=== PATIENT | male | born 1980 | race Caucasian/White ===

== ENCOUNTER 2021-05-01 03:13 | Emergency (ER) | payer SELFPAY ==
[~2021-05-01] VITALS: Ht 185.4 cm; Wt 136.0 kg
--- NOTE | 2021-05-01 03:53 | PHYS DOC ---
Past Medical History Additional Past Medical Histor: 5 STENTS LRV, methamphetamine use Past Surgical History: Tonsillectomy, Other Additional Past Surgical Histo: 5 HEART STENTS Smoking Status: Current Every Day Smoker Alcohol Use: Occasionally General Adult EDM: Chief Complaint: CHEST PAIN-CARDIAC NATURE HPI: HPI: Patient is a 40 year old male with past medical history of CAD s/p stents x5, polysubstance abuse including meth who presents with chest pain. Used meth yesterday evening. At approximately 2:30 AM began having chest pain while moving boxes. Chest pain lasts approximately 30 minutes. Took a nitroglycerin, and within a few minutes his chest pain had resolved. Chest pain was described as pressure. Radiates to the jaw. Feels similar to his previous heart pain. No nausea/vomiting, but was diaphoretic. Is now chest pain-free. Review of Systems: Review of Systems: Constitutional: Denies fever or chills. [] Eyes: Denies change in visual acuity. [] HENT: Denies nasal congestion or sore throat. [] Respiratory: Denies cough or shortness of breath. [] Cardiovascular: + Chest pain chest pain. No edema. [] GI: Denies abdominal pain, nausea, vomiting, bloody stools or diarrhea. [] : Denies dysuria. [] Musculoskeletal: Denies back pain or joint pain. [] Integument: Denies rash. [] Neurologic: Denies headache, focal weakness or sensory changes. [] Endocrine: Denies polyuria or polydipsia. [] Lymphatic: Denies swollen glands. [] Psychiatric: Denies depression or anxiety. [] Heart Score: C/O Chest Pain: Yes HEART Score for Chest Pain: HEART Score for Chest Pain Response (Comments) Value History Highly Suspicious 2 ECG Normal 0 Age < 45 0 Risk Factors >3 Risk Factors or Hx CAD 2 Total 4 Risk Factors: Risk Factors: DM, Current or recent (<one month) smoker, HTN, HLP, family history of CAD, obesity. Risk Scores: Score 0 - 3: 2.5% MACE over next 6 weeks - Discharge Home Score 4 - 6: 20.3% MACE over next 6 weeks - Admit for Clinical Observation Score 7 - 10: 72.7% MACE over next 6 weeks - Early Invasive Strategies Family History: Family History: No pertinent family history Allergies: Allergies: Allergies Coded Allergies Type Severity Reaction Last Updated Verified Penicillins Allergy Intermediate 05/01/21 Yes Sulfa (Sulfonamide Antibiotics) Allergy Intermediate 05/01/21 Yes Physical Exam: PE: Constitutional: Well developed, well nourished, no acute distress, non-toxic appearance. [] HENT: Normocephalic, atraumatic, bilateral external ears normal, oropharynx moist, no oral exudates, nose normal. [] Eyes: PERRLA, EOMI, conjunctiva normal, no discharge. [] Neck: Normal range of motion, no tenderness, supple, no stridor. [] Cardiovascular:Heart rate regular rhythm, no murmur [] Lungs & Thorax: Bilateral breath sounds clear to auscultation [] Abdomen: Bowel sounds normal, soft, no tenderness, no masses, no pulsatile masses. [] Skin: Warm, dry, no erythema, no rash. [] Back: No tenderness, no CVA tenderness. [] Extremities: No tenderness, no cyanosis, no clubbing, ROM intact, no edema. [] Neurologic: Alert and oriented X 3, normal motor function, normal sensory function, no focal deficits noted. [] Psychologic: Affect normal, judgement normal, mood normal. [] Current Patient Data: Vital Signs: Vital Signs Date Time Temp Pulse Resp B/P (MAP) Pulse Ox O2 Delivery O2 Flow Rate FiO2 05/01/21 03:20 98.6 97 22 129/81 98 Room Air 98.6 EKG: EKG: Sinus rhythm. Rate 99. Normal intervals. QTc 442. Normal axis. No acute ischemic changes identified. [] Radiology/Procedures: Radiology/Procedures: CXR Impression: [facility] [address] [place] [address] IMAGING REPORT Signed PATIENT: ALYSE GATES ACCOUNT: [id number] : 1980 LOCATION: ER AGE: 40 SEX: M EXAM STATUS: PRE ER ORD. PHYSICIAN: BHUMI HUTCHINSON MD REASON: CHEST PAIN, METH USE PROCEDURE: PORTABLE CHEST 1V EXAMINATION: Chest radiograph. VIEWS: Single view COMPARISON: None INDICATION:40 years, Male, chest pain. FINDINGS: Normal cardiomediastinal silhouette. No focal consolidation. No pleural effusion or pneumothorax. No acute osseous process. IMPRESSION: No acute cardiopulmonary process. Electronically signed by: Lele Bowser MD (05/01/2021 4:09 AM) [facility] DICTATED and SIGNED BY: LELE BOWSER MD DATE: 05/01/21 [id number] 0 Course & Med Decision Making: Course & Med Decision Making Pertinent Labs and Imaging studies reviewed. (See chart for details) Patient is a 40-year-old male with past medical history of coronary artery disea se s/p stents x5 and meth abuse who presents with chest pain. Chest pain similar to previous cardiac pain and occurred after methamphetamine use. Relieved with nitroglycerin. On arrival is afebrile, hemodynamically stable. EKG without acute ischemic changes. Given his substance use and history this is an extremely high risk situation. HEART score is 4 prior to first troponin. We'll check serial troponins. Feel he will need admission for chest pain/ACS evaluation. He is not have any infectious symptoms to suggest pneumonia. No pleuritic pain to suggest PE. No trauma to suggest PTX, but will evaluate with CXR. 0352 Patient was accepted for admission after his first troponin was negative. Patient was discovered to have eloped by nursing staff. They found that his IV was taken out. [id number] Dahlia Disclaimer: Dahlia Disclaimer: This electronic medical record was generated, in whole or in part, using a voice recognition dictation system. Departure Departure Impression: Primary Impression: Chest pain Disposition: LEFT AWOL/ELOPED Admitting Physician: BON Jane) Condition: STABLE BHUMI HUTCHINSON MD May 01, 2021 03:53
--- NOTE | 2021-05-01 04:06 | EKG ---
[facility] [address] [place] [address] Test Date: 2021-05-01 Test Time: 03:23:58 Pat Name: ALYSE GATES Department: Room: Gender: M Mail Machine Operator: : 1980 Requested By: BHUMI HUTCHINSON Order Number: [id number] Reading MD: Measurements Intervals [place] Rate: 99 P: 51 VA: 168 QRS: 53 QRSD: 104 T: 26 QT: 340 QTc: 442 Interpretive Statements SINUS RHYTHM NORMAL ECG RI6.02 No previous ECG available for comparison
--- NOTE | 2021-05-01 04:12 | RAD ---
EXAMINATION: Chest radiograph. VIEWS: Single view COMPARISON: None INDICATION:40 years, Male, chest pain. FINDINGS: Normal cardiomediastinal silhouette. No focal consolidation. No pleural effusion or pneumothorax. No acute osseous process. IMPRESSION: No acute cardiopulmonary process. Electronically signed by: Daryn Bowser MD (05/01/2021 4:09 AM) [facility]
[2021-05-01 04:37] LABS: BASO % 0 % (0-3); EOS # 0.2 x10^3/uL (0.0-0.7); EOS % 2 % (0-3); HEMOGLOBIN 15.1 g/dL (13.0-17.5); LYMPH # 2.6 x10^3/uL (1.0-4.8); LYMPH % 33 % (24-48); MEAN CORPUSCULAR HEMOGLOBIN 30 pg (25-35); MEAN CORPUSCULAR HGB CONC 34 g/dL (31-37); MEAN CORPUSCULAR VOLUME 89 fL (79-100); MONO # 0.6 x10^3/uL (0.0-1.1); MONO % 7 % (0-9); NEUT # 4.6 x10^3/uL (1.8-7.7); NEUT % 58 % (31-73); PLATELET COUNT 200 x10^3/uL (140-400); RED BLOOD COUNT 4.97 x10^6/uL (4.30-5.70); RED CELL DISTRIBUTION WIDTH 13.3 % (11.5-14.5); WHITE BLOOD COUNT 7.9 x10^3/uL (4.0-11.0)
[2021-05-01 04:48] VITALS: BP 113/66
[2021-05-01 04:56] LABS: CALCIUM 9.2 mg/dL (8.5-10.1); CREATININE 0.9 mg/dL (0.7-1.3); GFR 93.9; POTASSIUM 4.1 mmol/L (3.5-5.1)
[2021-05-01 05:02] LABS: ALBUMIN 4.1 g/dL (3.4-5.0); ALBUMIN/GLOBULIN RATIO 1.1 (1.0-1.7); TOTAL BILIRUBIN 0.7 mg/dL (0.2-1.0); TOTAL PROTEIN 7.9 g/dL (6.4-8.2)
== END 2021-05-01 06:00 | disposition left against medical advice (07) ==
LOC: ER 03:13
DX: R07.89 Other chest pain (principal); F17.200 Nicotine dependence, unspecified, uncomplicated; Z95.5 Presence of coronary angioplasty implant and graft; I25.10 Atherosclerotic heart disease of native coronary artery without angina pectoris; Z88.0 Allergy status to penicillin; Z88.2 Allergy status to sulfonamides
CPT/HCPCS: 36415; 71045; 80053; 84484; 85025; 93005; 99285-25